=== PATIENT | female | born 1995 | race Two or more races ===

== ENCOUNTER → 2017-04-12 | Outpatient (CLI) | payer MEDICAID, OTHER ==
--- NOTE | 2017-04-13 06:09 | PN ---
Triage Information Date/Time 22y.o primigravida at 25wid ,c/o baby not moving EFM no uterine contractions bpp ordered but patient requested for female button tacker which is not avalable U/A ordered ,while waiting for result patient AMA'huy while I was in section Weeks of Gestation 25w1d : 1 Para: 0 Diabetes: none Hypertention: none Objective Heart Rate: 140's Contractions: None Assessment/Plan IUP 25w1d DFM AMA'HUGH Lo MD Apr 13, 2017 06:08
== END | disposition home or self-care (01) ==
LOC: OBT 21:43
PROVIDERS: ATTEND Obstetrics & Gynecology
DX: O36.8120 Decreased fetal movements, second trimester, not applicable or unspecified (principal); Z3A.25 25 weeks gestation of pregnancy

== ENCOUNTER 2017-05-27 06:55 | Outpatient (CLI) | payer OTHER ==
[~2017-05-27] VITALS: Ht 160 cm; Wt 95.6 kg
[2017-05-27 07:08] VITALS: Ht 160 cm; Wt 95.6 kg
[2017-05-27] MEDS ORDERED: FERR325C PO (07:13)
[2017-05-27] MEDS ORDERED: PRENAT PO (07:13)
[2017-05-27 08:32] LABS: BASOPHILS % 0.2 % (0.0-2.0); EOSINOPHILS # 0.2 10^3/ul (0.0-0.5); HEMATOCRIT 32.4 % (37.0-47.0); HEMOGLOBIN 10.4 g/dl (12.0-16.0); LYMPHOCYTES # 2.2 10^3/ul (0.8-2.9); LYMPHOCYTES % 13.9 % (15.0-51.0); MEAN CORPUSCULAR HEMOGLOBIN 26.4 pg (29.0-33.0); MEAN CORPUSCULAR HGB CONC 32.1 g/dl (32.0-37.0); MEAN CORPUSCULAR VOLUME 82.2 fl (82.0-101.0); MEAN PLATELET VOLUME 9.6 fl (7.4-10.4); NEUTROPHILS % 77.7 % (39.0-77.0); PLATELET COUNT 426 10^3/UL (140-415); RED BLOOD COUNT 3.94 10^6/ul (4.20-5.40); RED CELL DISTRIBUTION WIDTH 14.9 % (11.5-14.5); WHITE BLOOD COUNT 16.1 10^3/ul (4.8-10.8)
[2017-05-27 08:40] LABS: ADD UMIC YES; UR ASCORBIC ACID NEGATIVE (NEGATIVE); UR BACTERIA FEW /HPF (NONE SEEN); UR BILIRUBIN (Dip) NEGATIVE (NEGATIVE); UR BLOOD (Dip) NEGATIVE (NEGATIVE); UR CLARITY CLEAR (CLEAR); UR COLOR YELLOW (YELLOW); UR GLUCOSE (Dip) 1+ mg/dL (NEGATIVE); UR KETONES (Dip) NEGATIVE (NEGATIVE); UR LEUKOCYTE ESTERASE (Dip) 1+ Leu/ul (NEGATIVE); UR NITRITE (Dip) NEGATIVE (NEGATIVE); UR RBC 4 /HPF (0-5); UR SPECIFIC GRAVITY (Dip) 1.006 (1.003-1.030); UR TOTAL PROTEIN (Dip) NEGATIVE (NEGATIVE); UR UROBILINOGEN (Dip) NEGATIVE (NEGATIVE)
--- NOTE | 2017-05-27 09:01 | RADRPT ---
PROCEDURE: OB ultrasound for biophysical profile CLINICAL INDICATION: Abdominal pain. TECHNIQUE: Multiple sonographic images of the pelvis were obtained. Transabdominal view of the gr avid uterus are available for review. The images were reviewed on a PACS workstation. COMPARISON: None FINDINGS: breathing movement = 2/2 tone = 2/2 motion = 2/2 Quantitative amniotic fluid volume = 2/2 RAEGAN = 11.5 cm Single live intrauterine with cardiac activity at 135 beats per minute. There is a posterior placenta without previa or abruption. IMPRESSION: 1. Single living intrauterine gestation in cephalic position. 2. Biophysical profile = 04/27. 3. RAEGAN = 11.5 cm. RPTAT: AACC Physician Karlo Date Time Electronically viewed and signed by Physician Karlo on 05/27/2017 09:01 /
--- NOTE | 2017-05-27 12:00 | CONS ---
Date/Time of Note Date/Time of Note DATE: 05/27/17 TIME: 11:49 Consultation Date/Type/Reason Admit Date/Time May 27, 2017 OB triage consult This patient is a 22 years old 1 para 0 with estimated date of confinement of July 25, 2017 which makes her 31 weeks and 4 days now. She came to triage area complaining of constant abdominal pain since last night. She is taking her vitamins as well as iron pills. On examination she is a well-developed well-nourished lady who would not allow men including made to to properly examine her. However she does not seem to be in any acute distress. Her general vital signs were stable with blood pressure of 97/65, pulse rate of 99, respiration of 18 and temperature, 97.9. Per examination by nurse her amniotic fluid appears to be intact with no vaginal discharge. Because there was a suspicion of possible gallbladder stone a series of workup and ultrasound was performed Laboratory Tests Test 05/27/17 07:44 05/27/17 08:20 Urine Color YELLOW Urine Clarity CLEAR Urine pH 7.0 Urine Specific [place] 1.006 Urine Ketones NEGATIVEmg/dL Urine Nitrite NEGATIVEmg/dL Urine Bilirubin NEGATIVEmg/dL Urine Urobilinogen NEGATIVEmg/dL Urine Leukocyte Esterase 1+Yumiko/ul Urine Microscopic RBC 4/HPF Urine Microscopic WBC 2/HPF Urine Bacteria FEW/HPF Urine Hemoglobin NEGATIVEmg/dL Urine Glucose 1+mg/dL Urine Total Protein NEGATIVEmg/dl White Blood Count 16.110^3/ul Red Blood Count 3.9410^6/ul Hemoglobin 10.4g/dl Hematocrit 32.4% Mean Corpuscular Volume 82.2fl Mean Corpuscular Hemoglobin 26.4pg Mean Corpuscular Hemoglobin Concent 32.1g/dl Red Cell Distribution Width 14.9% Platelet Count 14921^3/UL Mean Platelet Volume 9.6fl Neutrophils % 77.7% Lymphocytes % 13.9% Monocytes % 6.0% Eosinophils % 1.0% Basophils % 0.2% Nucleated Red Blood Cells % 0.0/100WBC Neutrophils # (Manual) 12.510^3/ul Lymphocytes # 2.210^3/ul Monocytes # 1.010^3/ul Eosinophils # 0.210^3/ul Basophils # 0.010^3/ul Nucleated Red Blood Cells # 0.010^3/ul Additional Comments On laboratory study her urine test was 1+ positive for glucose and also 1+ for leukoesterase she had wanted to WBCs per high-power field bacteria was reported few on examination her blood her WBC was 16.1 but her hemoglobin 10.4 hematocrit 32.4 again her platelet was reported 427,000. The blood tests to suspicion of possible thalassemia minor. On ultrasound study of the gallbladder area the liver was normal size and texture the gallbladder which was well visualized had no effect of wall thickening the kidneys was also normal and degenerative report on this ultrasound study was unremarkable right upper quadrant ultrasound. Obstetrical ultrasound the report was a single live intrauterine with cardiac activity of 135 bpm placenta was posterior not previa the biophysical profile was reported 04/27 amniotic fluid index 11.5 cm. ... Social History Smoking Status: Never smoker Exam/Review of Systems Results Result Diagram: 05/27/17 0820 Results 24 hrs Laboratory Tests Test 05/27/17 07:44 05/27/17 08:20 Urine Color YELLOW Urine Clarity CLEAR Urine pH 7.0 Urine Specific [place] 1.006 Urine Ketones NEGATIVE Urine Nitrite NEGATIVE Urine Bilirubin NEGATIVE Urine Urobilinogen NEGATIVE Urine Leukocyte Esterase 1+ H Urine Microscopic RBC 4 Urine Microscopic WBC 2 Urine Bacteria FEW A Urine Hemoglobin NEGATIVE Urine Glucose 1+ H Urine Total Protein NEGATIVE White Blood Count 16.1 H Red Blood Count 3.94 L Hemoglobin 10.4 L Hematocrit 32.4 L Mean Corpuscular Volume 82.2 Mean Corpuscular Hemoglobin 26.4 L Mean Corpuscular Hemoglobin Concent 32.1 Red Cell Distribution Width 14.9 H Platelet Count 426 H Mean Platelet Volume 9.6 Neutrophils % 77.7 H Lymphocytes % 13.9 L Monocytes % 6.0 Eosinophils % 1.0 Basophils % 0.2 Nucleated Red Blood Cells % 0.0 Neutrophils # (Manual) 12.5 H Lymphocytes # 2.2 Monocytes # 1.0 H Eosinophils # 0.2 Basophils # 0.0 Nucleated Red Blood Cells # 0.0 CATARINO CAN MD May 27, 2017 12:00
--- NOTE | 2017-05-27 12:13 | TRIAGE ---
OB Triage Datetime Report Generated by CPN: 05/27/2017 12:12 Datetime: 05/27/2017 11:49 Stage of : OB Triage Datetime: 05/27/2017 11:47 Labor Evaluation Frequency: x1 Monitor Mode: External Duration (sec)2399: 30 Pattern: Normal: <= 5 Contractions in 10 Minutes Resting Tone [place]: Relaxed Contraction Comments: denies feeling, states pain is gone Heart Rate FHR Baseline Rate: 145 Monitor Mode: External US Variability: Moderate 6-25 bpm Accelerations: 10X10 Decelerations: None Category: Category I Pain Assessment Pain Scale: 0 Pain Presence: None/Denies Pain Type: N/A Pain Goal: 3 Pain Relief Measures: Comfort Measures Datetime: 05/27/2017 10:54 Labor Evaluation Frequency: 0 Monitor Mode: External Resting Tone [place]: Relaxed Heart Rate FHR Baseline Rate: 145 Monitor Mode: External US Variability: Moderate 6-25 bpm Accelerations: 10X10 Decelerations: None Category: Category I Pain Assessment Pain Scale: 2 Pain Presence: Constant Pain Type: Cramping Pain Location: Abdomen Pain Goal: 3 Pain Relief Measures: Comfort Measures Pain Assessment Comments: states feels much better Datetime: 05/27/2017 09:49 Labor Evaluation Frequency: 0 Monitor Mode: External Pattern: Normal: <= 5 Contractions in 10 Minutes Resting Tone [place]: Relaxed Heart Rate FHR Baseline Rate: 135 Monitor Mode: External US Variability: Moderate 6-25 bpm Accelerations: 10X10 Decelerations: None Category: Category I Pain Assessment Pain Scale: 6 Pain Presence: Constant Pain Type: Cramping Pain Location: Abdomen Pain Goal: 3 Pain Relief Measures: Comfort Measures Datetime: 05/27/2017 08:06 Stage of : OB Triage Datetime: 05/27/2017 08:02 Stage of : OB Triage Datetime: 05/27/2017 07:38 Stage of : OB Triage Assessment Type: Triage Maternal Assessment Level of Consciousness: Fully Conscious DTR's/Clonus: DTRs 2+; No Clonus Headache: Denies Blurred Vision: No Respiratory Effort: Unlabored; Regular Rhythm; Equal Expansion Breath Sounds, Left: Clear and Equal Breath Sounds, Right: Clear and Equal Nausea/Vomiting: Denies RUQ Epigastric Pain: Denies Facial Edema: None Temperature Route: Axillary Fall Risk Assessment History of Falling: (0) No Secondary Diagnosis: (0) No Ambulatory Aid: (0) Bedrest/Nurse Assist IV Therapy: (0) No Gait: (0) Normal/Bedrest/Immobile Mental Status: (0) Oriented to Own Ability Fall Score: 0 Fall Risk Score Definition: No Risk: No action required Labor Evaluation Frequency: 0 Monitor Mode: External Resting Tone [place]: Relaxed Heart Rate FHR Baseline Rate: 140 Monitor Mode: External US Variability: Moderate 6-25 bpm Accelerations: 10X10 Decelerations: None Category: Category I Pain Assessment Pain Scale: 10 Pain Presence: Constant Pain Type: Sharp Pain Location: Abdomen Pain Goal: 3 Pain Relief Measures: Comfort Measures Datetime: 05/27/2017 07:03 Time of Arrival: 05/27/2017 06:53 EGA: 31.4 Arrived By: Wheelchair Arrived From: Home Chief Complaint: Constant low abd pain since last night Movement: Present Contractions: Denies/Absent Rupture of Membranes: Denies Vaginal Bleeding: None Vaginal Discharge: Denies Recent Sexual Intercouse: Denies Abdominal Trauma: Not Applicable Patient Complaints: Cramping Time Provider Notified: 05/27/2017 08:06 Provider Notified: abusleme Initial Plan: MONITOR, URINALYSIS, BPP/RAEGAN, US GALLBLADDER, CBC Datetime: 04/13/2017 01:07 Stage of : OB Triage Datetime: 04/13/2017 01:02 Contraction Comments: TOCO REMOVED Comments: US REMOVED Datetime: 04/13/2017 00:30 Labor Evaluation Frequency: NONE Monitor Mode: External Resting Tone [place]: Relaxed Heart Rate FHR Baseline Rate: 145 Variability: Moderate 6-25 bpm Accelerations: 15X15 Decelerations: None Comments: LOSS OF CONTACT DUE TO PT MOVING Datetime: 04/12/2017 23:46 Stage of : OB Triage Datetime: 04/12/2017 23:35 Stage of : OB Triage Assessment Type: Triage Maternal Assessment Level of Consciousness: Fully Conscious DTR's/Clonus: DTRs 2+; No Clonus Headache: Denies Blurred Vision: No Respiratory Effort: Unlabored; Regular Rhythm; Equal Expansion Breath Sounds, Left: Clear and Equal Breath Sounds, Right: Clear and Equal Nausea/Vomiting: Denies RUQ Epigastric Pain: Denies Lower Extremities Edema: None Degree: None Upper Extremities Edema: None Degree: None Facial Edema: None Temperature Route: Oral Fall Risk Assessment History of Falling: (0) No Secondary Diagnosis: (0) No Ambulatory Aid: (0) Bedrest/Nurse Assist IV Therapy: (0) No Gait: (0) Normal/Bedrest/Immobile Mental Status: (0) Oriented to Own Ability Fall Score: 0 Fall Risk Score Definition: No Risk: No action required Datetime: 04/12/2017 23:34 EGA: 25.1 Datetime: 04/12/2017 23:33 Time of Arrival: 04/12/2017 21:06 Arrived By: Wheelchair Arrived From: Emergency Dept Chief Complaint: DOES NOT FEEL BABY MOVE Movement: Absent Contractions: Denies/Absent Rupture of Membranes: Denies Vaginal Bleeding: None Vaginal Discharge: Denies Recent Sexual Intercouse: Denies Abdominal Trauma: Not Applicable Patient Complaints: Other Initial Plan: NST Labor Evaluation Frequency: 0 Monitor Mode: External Resting Tone [place]: Relaxed Contraction Comments: PT DENIES FEELING ANY CONTRACTIONS Heart Rate FHR Baseline Rate: 145 Monitor Mode: External US Variability: Moderate 6-25 bpm Accelerations: 15X15 Decelerations: None Datetime: 04/12/2017 22:00 Stage of : OB Triage Datetime: 04/12/2017 21:58 Stage of : OB Triage Datetime: 04/12/2017 21:57 Stage of : OB Triage Datetime: 04/12/2017 21:10 Stage of : OB Triage Contraction Comments: TOCO APPLIED Comments: US APPLIED
== END 2017-05-27 12:00 | disposition home or self-care (01) ==
LOC: OBT 06:55 → L-D 06:55 → OBT 12:00
PROVIDERS: ATTEND Obstetrics & Gynecology
DX: O26.893 Other specified pregnancy related conditions, third trimester (principal); Z3A.31 31 weeks gestation of pregnancy; R10.9 Unspecified abdominal pain
CPT/HCPCS: 76705; 76818; 81001; 85025; Z7500; G0463

== ENCOUNTER 2017-06-17 20:35 | Inpatient (IN) | payer OTHER ==
[~2017-06-17] VITALS: Ht 160 cm; Wt 97.7 kg
[~2017-06-17 20:35] MED LIST: FERR325C PO; PRENAT PO
[2017-06-17] MEDS ORDERED: ACETAMINOPHEN 325 MG TAB PO PRN (21:30)
--- NOTE | 2017-06-17 21:32 | PREOPHP ---
DATE OF ADMISSION: 06/17/2017 REASON FOR ADMISSION: This patient is admitted to [address] [place] [address] for further treatment, due to an uncontrolled diabetes and HISTORY OF PRESENT ILLNESS: This is a 22-year-old female, 1, para 0 patient with a last period of 09/24/2016 and EDC of July 25 by ultrasound. This patient has been coming for care since December this year, at which time she was given care, without complications. At the beginning of the she had hyperemesis, and her hemoglobin A1c was prediabetic, 5.8. The patient was also tested positive for GBS, and this was in December. She was advised for treatment during her labor. She started with a weight of 203. At that time, she was 13 weeks. Now at 34 weeks, she is 215 pounds. The patient was diagnosed with a 1-hour PP recently about 2 weeks ago. She was diagnosed with diabetes and she was given instructions of diet. Liver enzymes, bile acid and liver panel were done, which were slightly abnormal. The patient and have difficulties communicating with me. She has been offered a 3-hour GTT since early , since she was 25 weeks . Even in the first trimester, she was asked to do the 3-hour GTT, with no compliance. Only 2 weeks ago we had her do the 1-hour PP since her decided not to do the 3-hour GTT. The patient underwent a 1-hour PP that was 360. For this reason, she was immediately placed on metformin, and a long period of time was used to explain diet for her. This was advised extensively, with in presence, and she was asked to come in a week with the measurements of blood sugar fasting and 2-hour postprandial. At this time, I am admitting the patient, due to severely uncontrolled diabetes, with fasting over 200 and 2-hours over 300. She has been on metformin b.i.d., as she has stated that she has been taking, and it seems that she is not understanding the diet that she needs to follow. The patient is slightly anemic. She has been on vitamins and iron. FAMILY HISTORY: For hypertension on her father's side. ALLERGIES: SHE IS NOT ALLERGIC TO ANY MEDICATION. PAST MEDICAL/SURGICAL HISTORY: She does not have any history of any surgeries or any medical antecedents. PHYSICAL EXAMINATION: VITAL SIGNS: The patient is 5 feet, 3 inches. She is 215 pounds. Her blood pressure is at this time 120/80, pulse is 80, respirations 16. HEAD AND NECK: Normal. CHEST: Clear. HEART: Normal sinus rhythm. LUNGS: Clear. BREASTS: Soft, nontender, no masses. ABDOMEN: Soft. Uterus at 34 and 3/7 weeks' today, with heart tones are normal. Contractions were not observed. The patient states the baby is moving very good. EXTREMITIES: With some edema, normal reflexes, normal pulses, ASSESSMENT AND PLAN: At this time, we are admitting her for further treatment of her diabetes. The patient was also advised at 32 weeks to start doing non stress tests and biophysical profile, and it was explained thoroughly, and they have never shown up for the non stress tests and biophysical profile that was advised. The patient and her understand some Chinese, and the understands better, and it seems to go through their heads the importance of having a controlled diabetes in , but they are still not compliant. The admission tonight is for referral for Perinatology consult for control of her diabetes, non stress test, biophysical profile, and grit removal operator consultation. DIAGNOSES: 1. 34-3/7 weeks' , with uncontrolled diabetes. 2. Group B Streptococcus-positive. Dictated By: Mallorie Gallego MD /lucas/rigo /Document#: [id number]
[2017-06-17] MEDS ORDERED: GLUCAGON 1 MG INJ IM PRN (22:00)
[2017-06-17] MEDS ORDERED: GLUCOSE GEL 15 GRAM TUBE PO PRN ×2 (22:00)
[2017-06-17] MEDS ORDERED: DEXTROSE 50% 50 ML SYRINGE IV PRN ×2 (22:00)
[2017-06-17] MEDS ORDERED: GLUCOSE GEL 15 GRAM TUBE BUCCAL PRN (22:00)
[2017-06-17 22:04] LABS: BASOPHILS % 0.3 % (0.0-2.0); EOSINOPHILS # 0.1 10^3/ul (0.0-0.5); EOSINOPHILS % 0.8 % (0.0-7.0); HEMATOCRIT 36.4 % (37.0-47.0); HEMOGLOBIN 11.6 g/dl (12.0-16.0); LYMPHOCYTES # 1.5 10^3/ul (0.8-2.9); LYMPHOCYTES % 18.9 % (15.0-51.0); MEAN CORPUSCULAR HEMOGLOBIN 26.3 pg (29.0-33.0); MEAN CORPUSCULAR HGB CONC 31.9 g/dl (32.0-37.0); MEAN CORPUSCULAR VOLUME 82.5 fl (82.0-101.0); MEAN PLATELET VOLUME 10.1 fl (7.4-10.4); MONOCYTE # 0.6 10^3/ul (0.3-0.9); MONOCYTES % 7.8 % (0.0-11.0); NEUTROPHIL # 5.5 10^3/ul (1.6-7.5); NEUTROPHILS % 71.6 % (39.0-77.0); PLATELET COUNT 310 10^3/UL (140-415); RED BLOOD COUNT 4.41 10^6/ul (4.20-5.40); RED CELL DISTRIBUTION WIDTH 15.5 % (11.5-14.5); WHITE BLOOD COUNT 7.7 10^3/ul (4.8-10.8)
[2017-06-17 22:22] LABS: ALBUMIN 3.4 g/dl (3.3-4.9); ALBUMIN/GLOBULIN RATIO 0.87; BILIRUBIN,INDIRECT 0.1 mg/dl (0-1.1); BILIRUBIN,TOTAL 0.1 mg/dl (0.2-1.3); CALCIUM 9.7 mg/dl (8.4-10.2); CREATININE 0.54 mg/dl (0.44-1.00); POTASSIUM 3.9 mmol/L (3.5-5.1); TOTAL PROTEIN 7.3 g/dl (6.1-8.1)
--- NOTE | 2017-06-17 22:32 | RADRPT ---
PROCEDURE: US biophysical profile. CLINICAL INDICATION: Hyperglycemia. TECHNIQUE: Multiple sonographic images of the uterus were obtained. The images were revi ewed on a PACS workstation. COMPARISON: 05/27/2017. FINDINGS: There is a single live intrauterine gestation. heart rate is 133 beats per minute. The position is cephalic. The placenta is posterior grade 1 with no abruption or previa. The RAEGAN is 11.4 cm. (Normal = 5-20 cm.) Breathing Movement: 2 Gross Body Movement: 2 Tone: 2 Qualitative Amniotic Fluid Volume: 2 TOTAL: 8 IMPRESSION: 1. The biophysical score is 8/8. RPTAT: QQ .Stephan Navarro MD, MD Date Time Electronically viewed and signed by .Stephan Navarro MD, on 06/17/2017 22:31 .R/
[2017-06-17] MEDS ORDERED: metFORMIN 500 MG TAB PO ONE (23:00)
[2017-06-18] MEDS: CEPHALEXIN 500 MG CAP PO SCH ×4 (00:30→18:26)
[2017-06-18 03:43] VITALS: Ht 160 cm; Wt 97.7 kg
[2017-06-18] MEDS: ACCU-CHEK XX SCH ×4 (06:40→15:15)
[2017-06-18] MEDS: metFORMIN 500 MG TAB PO SCH ×2 (08:00→18:26)
[2017-06-18] MEDS: FERROUS SULFATE (EC) 325 MG TAB PO SCH (09:08)
[2017-06-18] MEDS: PRENATAL VITAMIN PO SCH (09:09)
--- NOTE | 2017-06-18 11:10 | PN ---
Date/Time of Note Date/Time of Note DATE: 06/18/17 TIME: 11:00 OB Subjective Subjective Subjective Counseling was done again this morning. was advised not to give her food from home. They both seem to understand what we are talking about. And the risk imposed to the baby.Admitted last night for uncontrolled diabetes 34.4 weeks with uncontrolled diabetes fasting and 2 hours after meals Patient is unreliable, there is a small language barrier, her and herself seems to understand when we talk about the risks and possible complications of diabetes in . This patient has been requested to have the 3 hour GTT since 20 weeks of the and only recently we were able to do so and finding that she was uncontrolled. She was also asked 2 weeks ago for NST and BPP which she did not comply with. Now I put her in the hospital for further control of her blood sugar, . perinatology consultation and dietitian consultation.. She had been placed on metformin 1 week ago and even with this medication she has since been uncontrolled, metformin was increased last night to 1000 twice daily awaiting for perinatology to either add insulin or discontinue metformin or start her on a second medication as glyburide. Perinatology and triage licensed practical nurse consultation appreciated. KEY MENEZES MD Jun 18, 2017 11:10
[2017-06-18 18:06] LABS: ALBUMIN 3.4 g/dl (3.3-4.9); ALBUMIN/GLOBULIN RATIO 0.97; BILIRUBIN,INDIRECT 0.1 mg/dl (0-1.1); BILIRUBIN,TOTAL 0.1 mg/dl (0.2-1.3); CALCIUM 9.4 mg/dl (8.4-10.2); CREATININE 0.57 mg/dl (0.44-1.00); POTASSIUM 3.7 mmol/L (3.5-5.1); TOTAL PROTEIN 6.9 g/dl (6.1-8.1)
[2017-06-19] MEDS: CEPHALEXIN 500 MG CAP PO SCH ×5 (00:41→23:55)
[2017-06-19] MEDS ORDERED: INFLUENZA VIRUS VACCINE 0.5 ML (DISPENSING) IM* ONE (09:00)
[2017-06-19] MEDS: ACCU-CHEK XX SCH ×4 (11:00→20:12)
[2017-06-19] MEDS: PRENATAL VITAMIN PO SCH (11:15)
[2017-06-19] MEDS: FERROUS SULFATE (EC) 325 MG TAB PO SCH (11:15)
[2017-06-19] MEDS: metFORMIN 500 MG TAB PO SCH ×2 (11:15→18:33)
[2017-06-19 16:48] VITALS: BP 136/73
[2017-06-19 19:15] LABS: SCRET 0.57 mg/dl (0.44-1.00)
[2017-06-20] MEDS: CEPHALEXIN 500 MG CAP PO SCH ×3 (06:14→19:20)
[2017-06-20] MEDS: metFORMIN 500 MG TAB PO SCH (08:25)
[2017-06-20] MEDS: PRENATAL VITAMIN PO SCH (08:25)
[2017-06-20] MEDS: FERROUS SULFATE (EC) 325 MG TAB PO SCH (08:25)
[2017-06-20] MEDS: ACCU-CHEK XX SCH ×4 (08:30→22:15)
[2017-06-20 14:35] LABS: BASOPHILS % 0.2 % (0.0-2.0); EOSINOPHILS # 0.1 10^3/ul (0.0-0.5); EOSINOPHILS % 1.2 % (0.0-7.0); HEMATOCRIT 36.2 % (37.0-47.0); HEMOGLOBIN 11.7 g/dl (12.0-16.0); LYMPHOCYTES # 1.7 10^3/ul (0.8-2.9); LYMPHOCYTES % 19.8 % (15.0-51.0); MEAN CORPUSCULAR HEMOGLOBIN 26.4 pg (29.0-33.0); MEAN CORPUSCULAR HGB CONC 32.3 g/dl (32.0-37.0); MEAN CORPUSCULAR VOLUME 81.7 fl (82.0-101.0); MEAN PLATELET VOLUME 10.5 fl (7.4-10.4); MONOCYTE # 0.8 10^3/ul (0.3-0.9); MONOCYTES % 9.6 % (0.0-11.0); NEUTROPHIL # 5.9 10^3/ul (1.6-7.5); NEUTROPHILS % 68.6 % (39.0-77.0); PLATELET COUNT 342 10^3/UL (140-415); RED BLOOD COUNT 4.43 10^6/ul (4.20-5.40); RED CELL DISTRIBUTION WIDTH 15.6 % (11.5-14.5); WHITE BLOOD COUNT 8.5 10^3/ul (4.8-10.8)
[2017-06-20 14:51] LABS: ALBUMIN 3.5 g/dl (3.3-4.9); ALBUMIN/GLOBULIN RATIO 0.85; CALCIUM 10.5 mg/dl (8.4-10.2); CREATININE 0.57 mg/dl (0.44-1.00); POTASSIUM 4.2 mmol/L (3.5-5.1); TOTAL PROTEIN 7.6 g/dl (6.1-8.1)
--- NOTE | 2017-06-20 17:32 | PN ---
Date/Time of Note Date/Time of Note DATE: 06/20/17 TIME: 17:12 OB Subjective Subjective Subjective no sujective symptoms except lower abdominal discomfort unable to regulate food she consumes , at the hospital ,and her own food she eats at home is totally differentlhere here at the hospital eats only one piece of bread and egg, yet at home eats only white rice which is high glycemic indexed food which may have affected her high BS level prior to admission. since her hospitaiztion her bs is relatively ok except X3 occasions of high 2ppbs which were 131, 138, 131 with increaed dose of metformin. since her AST ALt elevated to 145/198 from 45/118 , spoke to pharmacist to change med to sulfonylurea rather than insulin which was ordered by MFM which might drop the BS OB Objective Objective Objective EFM nst reactive B.P 136/94/, 137/86 AST 145/XBQ715 CR 0.57 24hr urine proein 575mg HEENT: WNL Heart: Rhythm Normal Lungs: Clear, Equal Abdomen: WNL Extremities: Normal Reflexes: Normal OB Assessment/Plan Other Assessment: IUP [id number] ADM ( initial random BS 99 in december) HbA1c 5.6 uncontrolled BS could have been controlled by tight ADA Other plan: hold insulin due to her unpredictable consumption will discuss with her OB after 1900 06/20/17 HUGH MCKEON MD Jun 20, 2017 17:26
[2017-06-20] MEDS ORDERED: INSULIN ASPART [NOVOLOG] 3 ML PEN SC SCH (17:35)
--- NOTE | 2017-06-20 19:42 | RADRPT ---
PROCEDURE: Obstetrical ultrasound for biophysical profile CLINICAL INDICATION: Biophysical profile. . TECHNIQUE: Obstetrical ultrasound of the uterus for biophysical profile. Transabdominal views are obtained. COMPARISON: 06/17/2017 FINDINGS: Single intrauterine gestation. Placenta: Posterior Lower margin of the placenta and cervix are not visualized. breathing movement = 2/2 tone = 2/2 motion = 2/2 RAEGAN = 2/2 RAEGAN = 12.0 cm heart rate: 133 beats per minute IMPRESSION: Single intrauterine gestation. Biophysical profile 04/27 RPTAT: AADD .Eric Forde MD, MD Date Time Electronically viewed and signed by .Eric Forde MD, on 06/20/2017 19:42 .B/
--- NOTE | 2017-06-20 19:44 | RADRPT ---
PROCEDURE: Obstetrical ultrasound. CLINICAL INDICATION: , evaluation. Pelvic pain. Maternal diabetes TECHNIQUE: Transabdominal sonographic images of the uterus obtained after first trimester , greater than 14 weeks gestation. Single intrauterine gestation present. COMPARISON: 06/17/2017 FINDINGS: Single intrauterine gestation. There is a cephalic presentation. Measurements were made in order to determine age. The results are as follows: BPD = 37 weeks 0 day(s) HC = 37 weeks 1 day(s) AC = 36 weeks 0 day(s) FL = 37 weeks 2 day(s) RAEGAN = not measuring Heart rate = 148 beats per minute The placenta is posterior. There is no evidence for an abruption or placenta previa. Ovaries are not visualized. IMPRESSION: Single intrauterine gestation of approximately 36 weeks 6 days by ultrasound criteria. [place] estimated weight = 2966 g; 21 percentile for gestational age of 38 weeks 2 days. RPTAT: AADD .Eric Forde MD, Date Time Electronically viewed and signed by .Eric Forde MD, MD on 06/20/2017 19:44 .B/
--- NOTE | 2017-06-20 23:17 | RADRPT ---
PROCEDURE: US Abdomen and Retroperitoneum. CLINICAL INDICATION: Elevated liver function tests TECHNIQUE: Multiple real-time longitudinal and transverse images were acquired of the patient's ab domen and retroperitoneum utilizing a curved array transducer. COMPARISON: 05/27/2017 FINDINGS: The liver is normal in size and echogenicity, without focal mass or intrahepatic biliary dilatation. Normal hepatopedal flow is seen within the main portal vein. The gallbladder is normal. There is no pericholecystic fluid or gallbladder wall thickening or gallstones. No intra or extrahepatic biliary dilatation is seen. The common bile duct measures 3.6 mm in maximal dimension. The pancreas is not visualized due to overlying bowel gas. The spleen is normal. No free fluid is identified. The right kidney measures 12.3 cm in length. The left kidney measures 11.7 cm in length. There is normal echogenicity within the kidneys. There are no perinephric fluid collections. No hydronephrosis, mass, or calculus is seen. The aorta and IVC are unremarkable. IMPRESSION: 1. Unremarkable complete abdominal and retroperitoneal ultrasound. RPTAT: HLDM .Jass Rodríguez MD, MD Date Time Electronically viewed and signed by .Jass Rodríguez MD, MD on 06/20/2017 23:17 .M/
[2017-06-21] MEDS: CEPHALEXIN 500 MG CAP PO SCH ×5 (01:51→23:58)
[2017-06-21] MEDS: ACCU-CHEK XX SCH ×4 (06:44→21:05)
[2017-06-21] MEDS ORDERED: NPH, HUMAN INSULIN ISOPHANE 3ML VIAL SC SCH (07:00)
[2017-06-21] MEDS ORDERED: INSULIN ASPART [NOVOLOG] 3 ML PEN SC SCH ×2 (07:00→07:30)
--- NOTE | 2017-06-21 07:14 | CONS ---
DATE OF ADMISSION: 06/17/2017 DATE OF CONSULTATION: 06/18/2017 PERINATOLOGY CONSULT The patient was admitted for uncontrolled gestational diabetes. She and 5 days. First at home. Based on her glucose logs, her glucose values have been in the 200s to 300s. However, they are available at the time of consult. Fasting value is 98, and 2 hours after breakfast is 138. She was placed 3 days ago on metformin 500 mg twice a day, and it was increased to 1000 mg twice a day by the primary police liaison, , the day prior to consult. Her history is overall not significant. REVIEW OF SYSTEMS: All systems reviewed and they were negative. Vital signs are stable. PHYSICAL EXAMINATION: Deferred. LABORATORY: Hemoglobin A1c is 8 percent. IMPRESSION: 1. Intrauterine at 34 weeks and 5 days. 2. Gestational diabetes, uncontrolled. There is a very large discrepancy between the values obtained at hospital and the values documented at home. She is currently on metformin 1000 mg twice a day; however, it is important to note that the metformin has not had time to have full effect, as it takes about 7-10 days for the metformin to reach its objective . Currently her glucose values are much better than expected. She has not been adhering to any appropriate diet, and nutrition consult will be requested. She has been seen by a diabetic counselor. RECOMMENDATIONS: For the time being, continue with the metformin 1000 mg twice a day, and we can adjust the next day, just after more values are available. I do recommend that the patient be given therapy, given a glucometer. Again, as I said before, there is a discrepancy between values at home and here, and I want to make sure that we have consistency. CMP and 24 hour urine for protein, please order. As I will be out of town over weekend, I will check out to , who will be covering this weekend. Dictated By: Chloe Toro MD /lucas/geovanna /Document#: [id number]
[2017-06-21] MEDS ORDERED: glyBURIDE 2.5 MG TAB PO SCH (08:00)
[2017-06-21] MEDS: PRENATAL VITAMIN PO SCH (10:13)
[2017-06-21] MEDS: FERROUS SULFATE (EC) 325 MG TAB PO SCH (10:14)
[2017-06-21 11:56] LABS: BASOPHILS % 0.3 % (0.0-2.0); EOSINOPHILS # 0.1 10^3/ul (0.0-0.5); EOSINOPHILS % 1.7 % (0.0-7.0); HEMATOCRIT 35.3 % (37.0-47.0); HEMOGLOBIN 11.2 g/dl (12.0-16.0); LYMPHOCYTES # 1.5 10^3/ul (0.8-2.9); LYMPHOCYTES % 18.5 % (15.0-51.0); MEAN CORPUSCULAR HEMOGLOBIN 26.2 pg (29.0-33.0); MEAN CORPUSCULAR HGB CONC 31.7 g/dl (32.0-37.0); MEAN CORPUSCULAR VOLUME 82.5 fl (82.0-101.0); MEAN PLATELET VOLUME 10.3 fl (7.4-10.4); MONOCYTE # 0.8 10^3/ul (0.3-0.9); MONOCYTES % 9.7 % (0.0-11.0); NEUTROPHIL # 5.4 10^3/ul (1.6-7.5); NEUTROPHILS % 69.3 % (39.0-77.0); PLATELET COUNT 317 10^3/UL (140-415); RED BLOOD COUNT 4.28 10^6/ul (4.20-5.40); RED CELL DISTRIBUTION WIDTH 15.6 % (11.5-14.5); WHITE BLOOD COUNT 7.8 10^3/ul (4.8-10.8)
[2017-06-21 12:17] LABS: ALBUMIN 3.3 g/dl (3.3-4.9); ALBUMIN/GLOBULIN RATIO 0.84; CREATININE 0.62 mg/dl (0.44-1.00); POTASSIUM 3.4 mmol/L (3.5-5.1); TOTAL PROTEIN 7.2 g/dl (6.1-8.1)
--- NOTE | 2017-06-21 14:52 | PN ---
Date/Time of Note Date/Time of Note DATE: 06/21/17 TIME: 14:47 OB Subjective Subjective Subjective This patient was admitted for severely uncontrolled diabetes with a hemoglobin A1c of 8 The patient had been controlled with diet, insulin and glyburide. The levels have come to normal. she has been off the insulin and metformin since the liver enzymes were elevated. Glyburide was given and she has had normal fasting and normal 2 hour postprandial. Today we are going to DC the glyburide to see if she can do this along with diet alone and we will monitor the liver enzymes to make sure the liver enzymes are not going higher and if they are we will probably consider delivery. At this time she is 35.4 weeks . NSTs and BPP's have been controlled she has no signs of PIH so far except for blood pressure has climbed up a little bit and she has proteinuria 24-hour urine has been elevated We will keep monitoring liver enzymes and protein in the urine and at on the results The has been in patient were informed and agreed about the management that we are scheduling right now. OB Objective HEENT: WNL Heart: Rhythm Normal Lungs: Clear, Equal Abdomen: WNL Extremities: Normal Reflexes: Normal Cervical Dilatation: None Effacement: 0% Station: -2 Accelerations: Accelerations Present Varibility: Moderate KEY MENEZES MD Jun 21, 2017 14:52
[2017-06-22] MEDS: ACCU-CHEK XX SCH ×3 (05:10→14:00)
[2017-06-22 06:17] LABS: BASOPHILS % 0.2 % (0.0-2.0); EOSINOPHILS # 0.1 10^3/ul (0.0-0.5); EOSINOPHILS % 1.6 % (0.0-7.0); HEMATOCRIT 35.5 % (37.0-47.0); LYMPHOCYTES # 1.5 10^3/ul (0.8-2.9); LYMPHOCYTES % 17.8 % (15.0-51.0); MEAN CORPUSCULAR HEMOGLOBIN 25.8 pg (29.0-33.0); MEAN CORPUSCULAR VOLUME 83.1 fl (82.0-101.0); MEAN PLATELET VOLUME 10.9 fl (7.4-10.4); MONOCYTE # 0.8 10^3/ul (0.3-0.9); MONOCYTES % 9.5 % (0.0-11.0); NEUTROPHIL # 5.8 10^3/ul (1.6-7.5); NEUTROPHILS % 70.1 % (39.0-77.0); PLATELET COUNT 297 10^3/UL (140-415); RED BLOOD COUNT 4.27 10^6/ul (4.20-5.40); RED CELL DISTRIBUTION WIDTH 15.9 % (11.5-14.5); WHITE BLOOD COUNT 8.3 10^3/ul (4.8-10.8)
[2017-06-22] MEDS: CEPHALEXIN 500 MG CAP PO SCH ×3 (06:23→18:00)
[2017-06-22 06:53] LABS: ALBUMIN 3.1 g/dl (3.3-4.9); CALCIUM 9.7 mg/dl (8.4-10.2); CREATININE 0.77 mg/dl (0.44-1.00); PHOSPHORUS 5.5 mg/dl (2.5-4.9); POTASSIUM 3.9 mmol/L (3.5-5.1); TOTAL PROTEIN 6.9 g/dl (6.1-8.1)
[2017-06-22] MEDS ORDERED: EPHEDrine SULFATE 50 MG/5 ML SYG ONE (07:00)
[2017-06-22] MEDS: FERROUS SULFATE (EC) 325 MG TAB PO SCH (08:48)
[2017-06-22] MEDS: PRENATAL VITAMIN PO SCH (08:49)
[2017-06-22] MEDS ORDERED: MAGNESIUM SULFATE 4 GM/100 ML 100 ML IVPB ONE (12:00)
[2017-06-22] MEDS ORDERED: DEXTROSE 5%-LR 1,000 ML IV SCH (12:00)
[2017-06-22] MEDS ORDERED: MAGNESIUM SULFATE 20 GM/500 ML 500 ML IV SCH ×2 (12:00→20:34)
[2017-06-22] MEDS ORDERED: MISOPROSTOL 200 MCG TAB PR PRN ×2 (12:30→20:30)
[2017-06-22] MEDS ORDERED: OXYTOCIN 30 UNITS/LR 500 ML IV SCH (12:30)
[2017-06-22] MEDS ORDERED: METHYLERGONOVINE 0.2 MG INJ IM PRN ×2 (12:30→20:30)
[2017-06-22] MEDS ORDERED: OXYTOCIN 30 UNITS/LR 500 ML IV PRN ×2 (12:30→20:30)
[2017-06-22] MEDS ORDERED: CEFAZOLIN 2 GM/50 ML (PMX) 50 ML IV SCH (12:30)
[2017-06-22] MEDS ORDERED: CARBOPROST 250 MCG INJ IM PRN ×2 (12:30→20:30)
[2017-06-22 13:12] LABS: BASOPHILS % 0.2 % (0.0-2.0); EOSINOPHILS # 0.1 10^3/ul (0.0-0.5); EOSINOPHILS % 1.3 % (0.0-7.0); HEMATOCRIT 34.6 % (37.0-47.0); HEMOGLOBIN 11.2 g/dl (12.0-16.0); LYMPHOCYTES # 1.8 10^3/ul (0.8-2.9); LYMPHOCYTES % 20.9 % (15.0-51.0); MEAN CORPUSCULAR HEMOGLOBIN 26.5 pg (29.0-33.0); MEAN CORPUSCULAR HGB CONC 32.4 g/dl (32.0-37.0); MEAN CORPUSCULAR VOLUME 81.8 fl (82.0-101.0); MEAN PLATELET VOLUME 10.5 fl (7.4-10.4); MONOCYTE # 0.8 10^3/ul (0.3-0.9); NEUTROPHIL # 5.7 10^3/ul (1.6-7.5); PLATELET COUNT 292 10^3/UL (140-415); RED BLOOD COUNT 4.23 10^6/ul (4.20-5.40); RED CELL DISTRIBUTION WIDTH 15.7 % (11.5-14.5); WHITE BLOOD COUNT 8.4 10^3/ul (4.8-10.8)
[2017-06-22 13:33] LABS: INR 0.91; PROTIME 12.3 Sec (12.2-14.2)
[2017-06-22 13:34] LABS: PARTIAL THROMBOPLASTIN TIME 28.1 Sec (25.0-35.0)
--- NOTE | 2017-06-22 15:34 | CONS ---
DATE OF ADMISSION: 06/17/2017 DATE OF CONSULTATION: 06/22/2017 HISTORY OF PRESENT ILLNESS: She developed some headache, and nausea, vomiting, as well as also dizziness today. Her liver enzymes continued to be high, slightly lower than yesterday but still twice the normal value. PLAN: Therefore, delivery is recommended secondary to severe preeclampsia with neurologic and GI symptoms. Dictated By: Chloe Toro MD /[email or web address]/kenya /Document#: [id number] CC: Mallorie Gallego MD;*EndCC*
[2017-06-22] MEDS ORDERED: LACTATED RINGER'S 1,000 ML IV ONE (20:00)
[2017-06-22] MEDS ORDERED: METOCLOPRAMIDE 10 MG INJ ONE (20:20)
[2017-06-22] MEDS ORDERED: KETOROLAC 30 MG INJ ONE (20:20)
[2017-06-22] MEDS ORDERED: morphine SULFATE/PF (10 MG/10 ML) INJ ONE (20:20)
[2017-06-22] MEDS: LACTATED RINGER'S 1,000 ML IV SCH (20:26)
[2017-06-22] MEDS ORDERED: LANOLIN 7 GM TUBE TOP PRN (20:30)
[2017-06-22] MEDS: CEFAZOLIN 2 GM/50 ML (PMX) 50 ML IV SCH (20:30)
[2017-06-22] MEDS ORDERED: NA PHOSPHATE/BIPHOS 133 ML ENEMA PR PRN (20:30)
[2017-06-22] MEDS ORDERED: METHYLERGONOVINE 0.2 MG TAB PO PRN (20:30)
[2017-06-22] MEDS ORDERED: CA GLUCONATE (GM) 10% 10ML INJ IV PRN (21:00)
[2017-06-22] MEDS ORDERED: FENTAnyl 50 MCG/ML VIAL ONE (21:13)
[2017-06-22] MEDS ORDERED: HYDROmorphONE (0.2 MG/ML) 10ML SYG IV PRN ×3 (22:00)
[2017-06-22] MEDS ORDERED: ONDANSETRON 4 MG INJ IV PRN ×2 (22:00)
[2017-06-22] MEDS ORDERED: morphine 2 MG INJ IV PRN ×2 (22:00)
[2017-06-22] MEDS ORDERED: KETOROLAC 30 MG INJ IV PRN (22:00)
[2017-06-22] MEDS ORDERED: DIPHENHYDRAMINE 50 MG INJ IV PRN ×2 (22:00)
[2017-06-22] MEDS ORDERED: NALOXONE (0.4 MG/ML) INJ IV PRN (22:00)
[2017-06-22] MEDS ORDERED: METOCLOPRAMIDE 10 MG INJ IV PRN (22:00)
[2017-06-22] MEDS: IBUPROFEN 800 MG TAB PO SCH (22:00)
[2017-06-22] MEDS ORDERED: morphine 4 MG/ML VIAL IV PRN (22:00)
[2017-06-22] MEDS ORDERED: MEPERIDINE 25 MG INJ IV PRN (22:00)
[2017-06-22] MEDS: OXYTOCIN 30 UNITS/LR 500 ML IV SCH (22:18)
--- NOTE | 2017-06-22 22:20 | SIPON ---
Date/Time of Note Date/Time of Note DATE: 06/22/17 TIME: 22:10 Operative Report Preoperative Diagnosis 35.2 WEEKS RECENT UNCONTROLLED DIABETES SEVERE PREECLAMPSIA OBESITY Postoperative Diagnosis SAME Operation/Procedure Performed PRIMARY LOW SEGMENT TRANSVERSE C/S Surgeon see signature line administrative assistant front desk DR BARDALES Anesthesia: spinal Estimated blood loss: other Transfusion Required none Specimen PLACENTA Grafts/Implants none Complications none KEY MENEZES MD Jun 22, 2017 22:20
--- NOTE | 2017-06-22 22:28 | OPR ---
DATE OF OPERATION: 06/22/2017 OPERATION PERFORMED: Primary low-segment transverse section. PREOPERATIVE DIAGNOSES: 1. 35 and 2 days weeks of . 2. Gestational diabetes, poorly controlled previously. 3. Obesity. 4. Severe preeclampsia. POSTOPERATIVE DIAGNOSES: 1. 35 and 2 days weeks of . 2. Gestational diabetes, poorly controlled previously. 3. Obesity. 4. Severe preeclampsia. SURGEON: Mallorie Gallego MD WIRELESS SALES MANAGER: Tre Woosd MD ANESTHESIOLOGIST: Clair Mariee MD ANESTHESIA: Spinal anesthesia. COMPLICATIONS: None. OPERATIVE PROCEDURE: The patient was given spinal anesthesia. She was placed in the supine position. A Hook catheter was placed in the bladder, and an incision was made suprapubically 2 cm up the pubic bone, going elliptically around an area that was with a follicle that was infected, with a small abscesses, that was removed from the skin to be able to do the . The abdomen was opened in layers without difficulties. The abdominal cavity was reached. The lower uterine segment was identified. The bladder flap was made. The uterus was opened in the midline with a scalpel, and the incision was increased laterally on either side for about 3 inches. The baby's head was delivered. There was a cord around the neck 2 times that was passed through the baby's head. The baby was delivered. The cord was clamped and cut. The baby was handed over to the Manager Collection team, and cord blood was obtained. The placenta was removed. The uterus was swabbed out and cleaned out after the placenta was removed. The cervix was opened with a ring forceps. The uterus was closed in 2 layers using number 1 Monocryl continuous suture, embedding the 1st line of suture, and hemostasis was good. Two interrupted sutures with 0 chromic sutures were placed, and the tubes and ovaries were normal. She had small, tiny fibroids on the uterus. The abdominal cavity was cleaned out, and the peritoneum was closed with a 2-0 Vicryl suture. The fascia was closed with an PDS looped suture. Then a Darin drain was placed on the incision on top of the fascia, and this drain was brought out of the incision, making a small incision 5 cm above the previous incisional cut. The Darin drain was tacked to the skin with a 2-0 silk suture, and it was tacked very firmly on the skin area. The bulb syringe was attached to the drain, and now the subcutaneous tissue around the Darin drain was closed with interrupted sutures with 2-0 Monocryl, and the subcuticular stitch was done on the skin incision. The Dermabond and Steri- Strips were applied and a pressure dressing. The patient tolerated the procedure well and left the OR awake and stable. Sponge counts and instrument counts were correct. Intravenous antibiotics were given for prophylaxis. Blood loss was about 600 mL. The urine was clear at the end of the procedure. Dictated By: Mallorie Gallego MD /lucas/rigo /Document#: [id number]
[2017-06-22] MEDS: KETOROLAC 30 MG INJ IV SCH (23:48)
[2017-06-23] VITALS (23 sets, daily range): BP systolic 86–130; BP diastolic 52–92; PULSE 20–101; RESP 18–20
[2017-06-23] MEDS: SENNA/DOCUSATE NA (8.6MG/50MG) TAB PO SCH ×3 (00:40→21:07)
[2017-06-23] MEDS: LABETALOL 200 MG TAB PO SCH ×3 (00:40→21:00)
[2017-06-23] MEDS: LABETALOL 100 MG TAB PO SCH ×3 (00:40→21:00)
[2017-06-23] MEDS: MAGNESIUM SULFATE 20 GM/500 ML 500 ML IV SCH ×3 (01:39→18:02)
[2017-06-23] MEDS: LACTATED RINGER'S 1,000 ML IV SCH ×3 (02:19→20:26)
[2017-06-23] MEDS: KETOROLAC 30 MG INJ IV SCH ×4 (04:00→17:54)
[2017-06-23] MEDS: OXYTOCIN 30 UNITS/LR 500 ML IV SCH (04:22)
[2017-06-23] MEDS: CEFAZOLIN 2 GM/50 ML (PMX) 50 ML IV SCH ×2 (04:25→13:01)
[2017-06-23] MEDS: IBUPROFEN 800 MG TAB PO SCH ×3 (05:07→22:00)
[2017-06-23] MEDS: ACCU-CHEK XX SCH ×4 (07:30→22:30)
--- NOTE | 2017-06-23 08:42 | PN ---
Date/Time of Note Date/Time of Note DATE: 06/23/17 TIME: 08:36 Assessment/Plan VTE Prophylaxis VTE Prophylaxis Intervention: ambulation Lines/Catheters IV Catheter Type (from Nrsg): Peripheral IV Subjective 24 Hr Interval Summary Free Text/Dictation Anesthesia note: A 22 year s/p spinal duramorph pod#1 is doing ok, no itching, headache, SOB, n/v , back pain or inflammation. care per surgery Exam/Review of Systems Vital Signs Vitals Vital Signs Date Time Temp Pulse Resp B/P Pulse Ox O2 Delivery O2 Flow Rate FiO2 06/23/17 06:40 89 18 128/79 Room Air 06/23/17 03:40 98.1 98 Intake and Output 06/22/17 06/22/17 06/23/17 15:00 23:00 07:00 Intake Total 75 ml 2700 ml 1475 ml Output Total 1200 ml 1100 ml Balance 75 ml 1500 ml 375 ml Results Result Diagram: 06/22/17 1250 06/22/17 0540 Results 24 hrs Laboratory Tests Test 06/22/17 08:51 06/22/17 12:50 06/22/17 13:02 06/22/17 17:23 Bedside Glucose 107 127 112 White Blood Count 8.4 Red Blood Count 4.23 Hemoglobin 11.2 L Hematocrit 34.6 L Mean Corpuscular Volume 81.8 L Mean Corpuscular Hemoglobin 26.5 L Mean Corpuscular Hemoglobin Concent 32.4 Red Cell Distribution Width 15.7 H Platelet Count 292 Mean Platelet Volume 10.5 H Neutrophils % 68.0 Lymphocytes % 20.9 Monocytes % 9.0 Eosinophils % 1.3 Basophils % 0.2 Nucleated Red Blood Cells % 0.0 Neutrophils # 5.7 Lymphocytes # 1.8 Monocytes # 0.8 Eosinophils # 0.1 Basophils # 0.0 Nucleated Red Blood Cells # 0.0 Prothrombin Time 12.3 Prothrombin Time Ratio 1.0 INR International Normalized Ratio 0.91 Activated Partial Thromboplast Time 28.1 Rapid Plasma Reagin NONREACTIVE Hepatitis B Surface Antigen NEGATIVE Test 06/22/17 18:55 06/23/17 00:33 06/23/17 04:15 Magnesium Level 4.7 H 4.9 H Urine Collection Duration 24 Urine Total Volume (Protein) 2250 Urine Total Protein 24 Hour 1192.5 H Medications Medications Current Medications Lactated Ringer's 1,000 ml @ 125 mls/hr Q8H IV ; Start 06/22/17 at 20:26 Cefazolin Sodium/ Dextrose (Ancef 2 Gm/50 ml (Pmx)) 50 ml @ 100 mls/hr Q8H IV Last administered on 06/23/17t 04:25; Admin Dose 100 MLS/HR; Start 06/22/17 at 20:30; Stop 06/23/17 at 12:59 Methylergonovine Maleate (Methergine) 0.2 mg Q6H PRN PO VAGINAL BLEEDING; Start 06/22/17 at 20:30 Acetaminophen/ Hydrocodone Bitart ([place] (5/325)) 1 tab Q4H PRN PO PAIN LEVEL 4 -6; Start 06/22/17 at 20:30 Acetaminophen/ Hydrocodone Bitart ([place] (5/325)) 2 tab Q4H PRN PO PAIN LEVEL 7 -10; Start 06/22/17 at 20:30 Ibuprofen (Motrin) 800 mg Q8 PO ; Start 06/22/17 at 22:00 Simethicone (Mylicon) 160 mg Q8H PRN PO DISTENSION/GAS/BLOATING; Start at 20:30 Senna/Docusate Sodium (Senokot-S) 1 tab BID PO ; Start 06/22/17 at 21:00 Sodium Biphosphate/ Sodium Phosphate (Fleet Enema) 133 ml DAILY PRN [place] CONSTIPATION; Start 06/22/17 at 20:30 Diphtheria/ Tetanus/Acell Pertussis (Adacel) 0.5 ml ONCE ONCE IM* ; Start at 09:00; Stop 06/25/17 at 09:01 Measles/Mumps/ Rubella Vaccine Live 0.5 ml 0.5 ml ONCE ONCE SC* ; Start at 09:00; Stop 06/25/17 at 09:01 Oxytocin/Lactated Ringer's 500 ml @ 0 mls/hr ONCE PRN IV For Hemorrhage Management; Start 06/22/17 at 20:30 Methylergonovine Maleate (Methergine) 0.2 mg ONCE PRN IM VAGINAL BLEEDING; Start 06/22/17 at 20:30 Carboprost Tromethamine (Hemabate) 250 mcg ONCE PRN IM VAGINAL BLEEDING; Start 06/22/17 at 20:30 Misoprostol (Cytotec) 1,000 mcg ONCE PRN [place] VAGINAL BLEEDING; Start 06/22/17 at 20:30 Diagnostic Test (Pha) (Accu-Chek) 1 ea FBSPP XX ; Start 06/23/17 at 06:00 Calcium Gluconate (Ca Gluc) 1 gm ONCE PRN IV FOR MAGNESIUM TOXICITY; Start 06/22 at 21:00 Labetalol HCl (Normodyne) 100 mg BID PO ; Start 06/22/17 at 21:00 Labetalol HCl (Normodyne) 200 mg BID PO ; Start 06/22/17 at 21:00 Naloxone HCl (Narcan) 0.1 mg Q2M PRN IV FOR RESP RATE 8 OR LESS; Start at 22:00; Stop 06/23/17 at 21:59 Morphine Sulfate (morphine) 2 mg Q3H PRN IV PAIN LEVEL 1-5; Start 06/22/17 at 22:00; Stop 06/23/17 at 21:59 Morphine Sulfate (morphine) 4 mg Q3H PRN IV PAIN LEVEL 6-10; Start 06/22/17 at 22:00; Stop 06/23/17 at 21:59 Diphenhydramine HCl (Benadryl) 25 mg Q6H PRN IV ITCHING; Start 06/22/17 at 22: 00; Stop 06/23/17 at 21:59 Ondansetron HCl (Zofran Inj) 4 mg Q6H PRN IV NAUSEA AND/OR VOMITING; Start 06/22/17 at 22:00; Stop 06/23/17 at 21:59 Ketorolac Tromethamine 30 mg 30 mg Q6H IV Last administered on 06/22/17 23:48 ; Admin Dose 30 MG; Start 06/22/17 at 22:00; Stop 06/25/17 at 21:59 Magnesium Sulfate (Magnesium Sulfate 20 Gm/500 ml) 500 ml @ 50 mls/hr Q10H IV Last administered on 06/23/17 01:39; Admin Dose 50 MLS/HR; Start 06/22/17 at 22 :02 Influenza Virus Vaccine (Fluzone) 0.5 ml ONCE ONCE IM* ; Start 06/24/17 at 09:00 ; Stop 06/24/17 at 09:01 TORIBIO VILLANUEVA MD Jun 23, 2017 08:42
[2017-06-23 09:08] LABS: BASOPHILS % 0.1 % (0.0-2.0); EOSINOPHILS % 0.1 % (0.0-7.0); HEMATOCRIT 35.9 % (37.0-47.0); HEMOGLOBIN 11.3 g/dl (12.0-16.0); MEAN CORPUSCULAR HEMOGLOBIN 26.2 pg (29.0-33.0); MEAN CORPUSCULAR HGB CONC 31.5 g/dl (32.0-37.0); MEAN CORPUSCULAR VOLUME 83.1 fl (82.0-101.0); MEAN PLATELET VOLUME 10.8 fl (7.4-10.4); MONOCYTE # 0.8 10^3/ul (0.3-0.9); MONOCYTES % 6.2 % (0.0-11.0); NEUTROPHIL # 11.7 10^3/ul (1.6-7.5); PLATELET COUNT 324 10^3/UL (140-415); RED BLOOD COUNT 4.32 10^6/ul (4.20-5.40); RED CELL DISTRIBUTION WIDTH 15.5 % (11.5-14.5); WHITE BLOOD COUNT 13.6 10^3/ul (4.8-10.8)
[2017-06-23 09:33] LABS: INR 0.86; PARTIAL THROMBOPLASTIN TIME 28.5 Sec (25.0-35.0); PROTIME 11.7 Sec (12.2-14.2); PT RATIO 0.9
[2017-06-23 09:34] LABS: ALBUMIN 3.2 g/dl (3.3-4.9); CALCIUM 7.9 mg/dl (8.4-10.2); CREATININE 0.61 mg/dl (0.44-1.00); PHOSPHORUS 4.8 mg/dl (2.5-4.9); POTASSIUM 4.4 mmol/L (3.5-5.1); TOTAL PROTEIN 7.1 g/dl (6.1-8.1)
[2017-06-23] MEDS ORDERED: DOCUSATE SODIUM 100 MG CAP PO ONE (15:00)
[2017-06-23] MEDS ORDERED: CEFAZOLIN 2 GM/50 ML (PMX) 50 ML IVPB SCH (15:09)
[2017-06-24] MEDS: HYDROCODONE/APAP (5/325) TAB PO PRN ×4 (02:40→17:36)
[2017-06-24 04:00] VITALS: BP 118/73; PULSE 84; RESP 18
[2017-06-24] MEDS: KETOROLAC 30 MG INJ IV SCH ×3 (04:00→16:00)
[2017-06-24] MEDS: MAGNESIUM SULFATE 20 GM/500 ML 500 ML IV SCH ×2 (04:02→14:02)
[2017-06-24] MEDS: LACTATED RINGER'S 1,000 ML IV SCH ×2 (04:26→12:26)
[2017-06-24] MEDS: IBUPROFEN 800 MG TAB PO SCH ×3 (06:05→21:19)
[2017-06-24] MEDS: ACCU-CHEK XX SCH ×4 (07:30→20:05)
[2017-06-24 07:40] VITALS: BP 107/65; PULSE 84
[2017-06-24] MEDS: SENNA/DOCUSATE NA (8.6MG/50MG) TAB PO SCH ×2 (08:33→20:44)
[2017-06-24] MEDS: LABETALOL 100 MG TAB PO SCH ×2 (08:37→20:45)
[2017-06-24] MEDS: LABETALOL 200 MG TAB PO SCH ×2 (09:00→21:00)
[2017-06-24] MEDS ORDERED: INFLUENZA VIRUS VACCINE 0.5 ML (DISPENSING) IM* ONE (09:00)
[2017-06-24 12:00] VITALS: BP 118/78; PULSE 76; RESP 19
--- NOTE | 2017-06-24 12:16 | PN ---
Date/Time of Note Date/Time of Note DATE: 06/23/17 TIME: 12:13 OB Subjective Subjective Subjective Day 1 post Afebrile, feels okay, stable, pain controlled with Toradol. Incision dry Wound drainage through J Valle 8 cc. We will leave it until it stops draining Wound dry No headache or dizziness nor epigastric pain Reflexes within normal limits Some leg edema OB Objective HEENT: WNL Heart: Rhythm Normal Lungs: Clear, Equal Abdomen: WNL Extremities: Normal Reflexes: Normal KEY MENEZES MD Jun 24, 2017 12:16
--- NOTE | 2017-06-24 12:18 | PN ---
Date/Time of Note Date/Time of Note DATE: 06/24/17 TIME: 12:16 Assessment/Plan Lines/Catheters IV Catheter Type (from Nrsg): Saline Lock Subjective 24 Hr Interval Summary Date 2 post feeling afebrile no complaint Wound incision dry and drainage still draining Stable ambulatory with normal bowel sounds tolerating diet and voiding well Constitutional: BM, ambulates, flatus, improved, no complaints, urine output Feeding: advancing diet Pain Control: well controlled Detailed Summary Eyes: no complaints ENT: no complaints Respiratory: no complaints Cardiovascular: no complaints Gastrointestinal: no complaints Genitourinary: no complaints Musculoskeletal: no complaints Skin: no complaints Neurologic: no complaints Endocrine: no complaints Lymphatic: no complaints Psychological: nl mood/affect, no complaints Immunologic: no complaints Exam/Review of Systems Vital Signs Vitals Vital Signs Date Time Temp Pulse Resp B/P Pulse Ox O2 Delivery O2 Flow Rate FiO2 06/24/17 07:40 98.7 84 107/65 Room Air 06/24/17 04:00 18 06/23/17 03:40 98 Intake and Output 06/23/17 06/23/17 06/24/17 15:00 23:00 07:00 Intake Total 1000 ml 825 ml Output Total 553 ml 1538 ml 1005 ml Balance 447 ml -713 ml -1005 ml Exam Constitutional: alert, oriented, well developed Psych: nl mood/affect, no complaints Head: atraumatic, normocephalic Eyes: EOMI, nl conjunctiva, nl lids, nl sclera ENMT: mucosa pink and moist, nl external ears & nose, nl lips & teeth, nl nasal mucosa & septum Neck: non-tender, supple Respiratory: clear to auscultation, normal air movement Cardiovascular: nl pulses, regular rate and rhythm Gastrointestinal: nl liver, spleen, non-tender, soft Musculoskeletal: nl extremities to inspection, nl gait and stance Extremities: normal pulses Neurological: FLEXOGRAPHIC PRINTING MACHINIST II-XII intact, nl mental status, nl speech, nl strength Skin: nl turgor, rash or lesions Lymph: nl lymph nodes Results Result Diagram: 06/23/17 0829 06/23/17 0829 KEY MENEZES MD Jun 24, 2017 12:18
[2017-06-24] MEDS ORDERED: BISACODYL (EC) 5 MG TAB PO ONE (13:00)
[2017-06-24 16:00] VITALS: BP 123/69; PULSE 71; RESP 16
[2017-06-24 20:00] VITALS: BP 122/70; PULSE 95; RESP 18
[2017-06-25 04:30] VITALS: BP 124/73; PULSE 88; RESP 18
[2017-06-25] MEDS: IBUPROFEN 800 MG TAB PO SCH ×3 (05:45→21:12)
[2017-06-25 07:30] VITALS: BP 127/91; PULSE 68; RESP 18
[2017-06-25] MEDS: ACCU-CHEK XX SCH ×4 (07:30→21:00)
[2017-06-25] MEDS: HYDROCODONE/APAP (5/325) TAB PO PRN ×3 (07:45→17:53)
[2017-06-25] MEDS: LABETALOL 200 MG TAB PO SCH ×2 (09:00→21:00)
[2017-06-25] MEDS ORDERED: DIPHTH/TET/ACEL PERTUSS (ADULT) 0.5 ML VIAL IM* ONE (09:00)
[2017-06-25] MEDS ORDERED: MEASLES,MUMPS,RUBELLA VACCINE INJ SC* ONE (09:00)
[2017-06-25] MEDS: LABETALOL 100 MG TAB PO SCH ×2 (09:08→21:12)
[2017-06-25] MEDS: SENNA/DOCUSATE NA (8.6MG/50MG) TAB PO SCH ×2 (09:08→21:12)
[2017-06-25 10:48] LABS: BASOPHILS % 0.3 % (0.0-2.0); EOSINOPHILS # 0.3 10^3/ul (0.0-0.5); EOSINOPHILS % 2.5 % (0.0-7.0); HEMATOCRIT 31.9 % (37.0-47.0); HEMOGLOBIN 9.8 g/dl (12.0-16.0); LYMPHOCYTES # 1.9 10^3/ul (0.8-2.9); LYMPHOCYTES % 15.4 % (15.0-51.0); MEAN CORPUSCULAR HGB CONC 30.7 g/dl (32.0-37.0); MEAN CORPUSCULAR VOLUME 84.6 fl (82.0-101.0); MONOCYTE # 0.9 10^3/ul (0.3-0.9); MONOCYTES % 7.7 % (0.0-11.0); NEUTROPHILS % 73.7 % (39.0-77.0); PLATELET COUNT 400 10^3/UL (140-415); RED BLOOD COUNT 3.77 10^6/ul (4.20-5.40); RED CELL DISTRIBUTION WIDTH 16.5 % (11.5-14.5); WHITE BLOOD COUNT 12.2 10^3/ul (4.8-10.8)
--- NOTE | 2017-06-25 12:33 | PD.PPDC ---
GRINDING WHEEL DRESSER Discharge Instruction Condition Patient Condition: Good Diet Diet: Resume Regular Diet Activity/Restrictions Activity: Normal Activity May Shower Restrictions: No Exercising No Lifting No Driving No Sexual Activity Nothing in the Vagina No Winfred No Tampons, douche Wound/Drain Care Instructions Wound/Drain Care Instructions: Remove Steri Strips in 1 week Wash with soap and water Keep clean and dry Follow-up Follow-up with Physician: 1, Week/Weeks Return to clinic for MEDICAL CODER Instructions: Fever greater than 101 Chills Worsening abdominal pain Excessive Vaginal Bleeding More than 2 pads per hour Unable to tolerate diet OB Instructions: Breast Tenderness Depression Blurried Vision Headache Surgical Instructions: Incisional Drainage Incisional Redness KEY MENEZES MD Jun 25, 2017 12:33
--- NOTE | 2017-06-25 12:37 | DS ---
Date/Time of Note Date/Time of Note DATE: 06/25/17 TIME: 12:34 Discharge Summary Admission/Discharge Info Admit Date/Time Jun 17, 2017 at 20:35 Discharge Date/Time 06/26/17 Discharge Diagnosis 35.2 weeks . severe preeclamsia uncontrolled diabetes Patient Condition: Good Procedures primary c/s Hospital Course see report Home Meds Reported Medications Ferrous Sulfate (Iron) 325 Mg Capsule.er, 325 MG PO DAILY, CAP 05/27/17 Multivit/Min/Fol Ac/Iron/Pren* ( S*) 1 Tab Tab, 1 TAB PO DAILY, TAB 05/27/17 Primary Care Provider Not On Staff Doctor Pending Labs Laboratory Tests Test 06/24/17 12:49 06/24/17 15:30 06/24/17 20:39 06/25/17 07:39 Hemoglobin A1c 7.5% (0-5.9) Magnesium Level 2.7mg/dl (1.7-2.5) Bedside Glucose 146mg/dL (70-220) 114mg/dL (70-220) 96mg/dL (70-220) Test 06/25/17 10:17 06/25/17 10:21 Bedside Glucose 108mg/dL (70-220) White Blood Count 12.210^3/ul (4.8-10.8) Red Blood Count 3.7710^6/ul (4.20-5.40) Hemoglobin 9.8g/dl (12.0-16.0) Hematocrit 31.9% (37.0-47.0) Mean Corpuscular Volume 84.6fl (82.0-101.0) Mean Corpuscular Hemoglobin 26.0pg (29.0-33.0) Mean Corpuscular Hemoglobin Concent 30.7g/dl (32.0-37.0) Red Cell Distribution Width 16.5% (11.5-14.5) Platelet Count 25650^3/UL (140-415) Mean Platelet Volume 10.0fl (7.4-10.4) Neutrophils % 73.7% (39.0-77.0) Lymphocytes % 15.4% (15.0-51.0) Monocytes % 7.7% (0.0-11.0) Eosinophils % 2.5% (0.0-7.0) Basophils % 0.3% (0.0-2.0) Nucleated Red Blood Cells % 0.0/100WBC (0.0-0.0) Neutrophils # 9.010^3/ul (1.6-7.5) Lymphocytes # 1.910^3/ul (0.8-2.9) Monocytes # 0.910^3/ul (0.3-0.9) Eosinophils # 0.310^3/ul (0.0-0.5) Basophils # 0.010^3/ul (0.0-0.1) Nucleated Red Blood Cells # 0.010^3/ul (0.0-0.0) KEY MENEZES MD Jun 25, 2017 12:36
--- NOTE | 2017-06-25 12:38 | PN ---
Date/Time of Note Date/Time of Note DATE: 06/25/17 TIME: 12:37 Assessment/Plan Lines/Catheters [facility] Saline Lock Assessment/Plan Chief Complaint/Hosp Course see report Problems: Subjective 24 Hr Interval Summary day 3 postop afebrile , feels good. drain not draining much russel drain removed without complications Constitutional: BM, ambulates, flatus, improved, no complaints, urine output Feeding: advancing diet Detailed Summary Eyes: no complaints ENT: no complaints Respiratory: no complaints Cardiovascular: no complaints Gastrointestinal: no complaints Genitourinary: no complaints Musculoskeletal: no complaints Skin: no complaints Neurologic: no complaints Endocrine: no complaints Lymphatic: no complaints Psychological: nl mood/affect, no complaints Immunologic: no complaints Exam/Review of Systems Vital Signs Vitals Vital Signs Date Time Temp Pulse Resp B/P Pulse Ox O2 Delivery O2 Flow Rate FiO2 06/25/17 07:30 98.6 68 18 127/91 Room Air 06/23/17 03:40 98 Intake and Output 06/24/17 06/24/17 06/25/17 15:00 23:00 07:00 Output Total 1 ml 1 ml Balance -1 ml -1 ml Exam Constitutional: alert, oriented, well developed Psych: nl mood/affect, no complaints Head: atraumatic, normocephalic Eyes: EOMI, nl conjunctiva, nl lids, nl sclera ENMT: mucosa pink and moist, nl external ears & nose, nl lips & teeth, nl nasal mucosa & septum Neck: non-tender, supple Respiratory: clear to auscultation, normal air movement Cardiovascular: nl pulses, regular rate and rhythm Gastrointestinal: nl liver, spleen, non-tender, soft Musculoskeletal: nl extremities to inspection, nl gait and stance Extremities: normal pulses Neurological: DATA ENTRY ASSOCIATE II-XII intact, nl mental status, nl speech, nl strength Skin: nl turgor, rash or lesions Lymph: nl lymph nodes Results Result Diagram: 06/25/17 1021 06/23/17 0829 KEY MENEZES MD Jun 25, 2017 12:38
[2017-06-25 16:30] VITALS: BP 131/88; PULSE 79; RESP 18
[2017-06-25 20:00] VITALS: BP_SYST 127; BP_SYST 128; BP_DIAS 74; BP_DIAS 78; PULSE 84; PULSE 86; RESP 18
[2017-06-25 21:12] VITALS: BP 127/74; PULSE 86; RESP 18
[2017-06-26] MEDS: HYDROCODONE/APAP (5/325) TAB PO PRN ×4 (00:06→12:24)
[2017-06-26 04:00] VITALS: BP 127/89; PULSE 90; RESP 18
[2017-06-26] MEDS: IBUPROFEN 800 MG TAB PO SCH ×2 (06:58→14:27)
[2017-06-26 08:00] VITALS: BP 130/84; PULSE 74; RESP 18
[2017-06-26] MEDS: ACCU-CHEK XX SCH ×3 (08:20→13:50)
[2017-06-26] MEDS: SENNA/DOCUSATE NA (8.6MG/50MG) TAB PO SCH (08:40)
[2017-06-26] MEDS: LABETALOL 100 MG TAB PO SCH (08:41)
[2017-06-26] MEDS: LABETALOL 200 MG TAB PO SCH (09:00)
--- NOTE | 2017-06-26 12:52 | DS ---
DATE OF ADMISSION: 06/17/2017 DATE OF DISCHARGE: 06/25/2017 ADMITTING DIAGNOSES: Uncontrolled diabetes 34-3/7 weeks' , uncontrolled diabetes, GBS posi tive and possible PIH. FINAL DIAGNOSES: Uncontrolled diabetes 34-3/7 weeks' , uncontrolled diabetes, GBS positive and possible PIH. Severe preeclampsia. PROCEDURES DONE: Primary section. COMPLICATIONS: None. HISTORY: This is a 22-year-old female, 1, para 0 with an EDC of 07/25. This patient was se en in the office with blood sugars over 300. The patient was voiding doing her laboratory testing n ot compliant with the blood sugar testing that had been ordered every time she visited the office un til she finally agreed to the 1 hour that was extremely abnormal. The patient was admitted imm ediately. She was placed on metformin and she had been placed before on metformin that was not get ting controlled blood sugars and she was given an increased dose of metformin and admitted to the [facility] for further evaluation and for perinatology consultation. The perinatology consultation was done, and she was discontinued on her metformin and she was started on insulin but patient never sta rted because the patient got controlled with diet alone. At the same time she was being evaluated f or PIH. The proteinuria was over 500, and repeated again was 1100 with visual symptoms and with hea daches and neurological complication of headaches that were extensive and blurred vision and vomitin g and nausea. The patient started becoming preeclamptic severe with hyperreflexia in 1 side that wa s observed with mild edema with laboratory testing on liver function tests that were becoming abnorm al. For all these reasons, the perinatologist advised us to deliver her. Since she had a noninduci ble cervix she was scheduled for a section. After the section she continued with her diabetic diet. The patient became anemic and without symptoms. She had been controlled pretty much with the blood sugar level except that at times she goes off. The patient is advised for a mor e strict diet at home since she is on no medication pretty much controlled except for certain occasi ons. The patient postoperatively is doing well. She is afebrile. She is ambulatory. Incision is well. The patient is voiding well. She is trying to bring her milk out for and her b owel movements are being present and with normal voiding. She is tolerating diet and ambulation is being done and she has been afebrile and we are discharging her on Monhegan and ibuprofen p.r.n. pain w ith no other instruction except for diabetic diet. She needs to be controlled. Her hemoglobin A1c was abnormal when she came in. She is going home with a hemoglobin A1c of 7.5, still abnormal. The patient is advised to see me in the office in a week. Her blood pressures were up and down slightl y. They were occasions where she was given labetalol for her blood pressure, but mostly she has bee n doing better without the need for any blood pressure medication or any medication for her blood moreno gar if she has controls her diet. She is being discharged in good condition, stable, to see me in t he office in a week or earlier if she had any problems. She has been given instructions of what to do and not to do at home, how to take care of herself and her incision. Dictated By: KEY HENRY/MARGIE Conf#: [id number] DID#: [id number]
[2017-06-26 15:55] VITALS: BP 102/60; PULSE 91; RESP 18
== END 2017-06-26 18:29 | disposition home or self-care (01) | DRG 765 ==
LOC: OBG 20:35 → L-D 06-22 19:14 → PP1 06-23 00:45
PROVIDERS: ADMIT Obstetrics & Gynecology; ATTEND Obstetrics & Gynecology
PROC: 0HB7XZZ Excision of Abdomen Skin, External Approach (ICD-10-PCS; 2017-06-22)
PROC: 10D00Z1 Extraction of Products of Conception, Low, Open Approach (ICD-10-PCS; principal; 2017-06-22 20:15)
DX: O24.420 Gestational diabetes mellitus in childbirth, diet controlled (principal); L02.211 Cutaneous abscess of abdominal wall; O14.14 Severe pre-eclampsia complicating childbirth; O99.214 Obesity complicating childbirth; E66.9 Obesity, unspecified; O99.89 Other specified diseases and conditions complicating pregnancy, childbirth and the puerperium; N88.8 Other specified noninflammatory disorders of cervix uteri; O99.02 Anemia complicating childbirth; O99.824 Streptococcus B carrier state complicating childbirth; Z68.38 Body mass index [BMI] 38.0-38.9, adult; Z3A.34 34 weeks gestation of pregnancy; Z37.0 Single live birth
CPT/HCPCS: 76700; 76815; 76818; 80053; 80069; 80076; 82575; 82962; 83036; 83615; 83735; 84156; 84560; 85025; 85384; 85610; 85730; 86592; 86850; 86900; 86901; 87340; 90686; 90715; 99464; J0690; J1815; J1885; J2210; J2270; J2274; J2405; J2590; J2765; J3010; J3475; J7120; J7121